=== PATIENT | male | born 1985 | race Caucasian/White ===

== ENCOUNTER → 2022-04-29 13:18 | Outpatient (CLI) | payer MEDICAID, SELFPAY ==
--- NOTE | 2022-04-29 | DI.RAD_ITS ---
Exam(s) XR KNEE RT 3V AP,LAT,FELICIA EXAM: XR KNEE RT 3V AP,LAT,FELICIA CLINICAL HISTORY: Chronic rt knee pain > 3 mos, M25.561, trauma years ago, mild laxity now. TECHNIQUE: 2D digital imaging was performed. Three views. COMPARISON: No exams were available for comparison FINDINGS: BONES: No acute fracture is present. There is a circumscribed elongated bony density seen adjacent t o the region of the tibial spines. This could be secondary to prior trauma. No bony destructive les ion is seen. JOINTS: The joint spaces are well maintained. The knee is normally aligned. No joint effusion is see n. SOFT TISSUE: Normal. IMPRESSION: Bony density near the tibial spines may be related to prior trauma. DATA REPOSITORY: RADIATION DOSE DELIVERED:
== END ==
PROVIDERS: Visit Provider Nurse Practitioner Family
DX: M25.561 Pain in right knee (principal); G89.29 Other chronic pain
CPT/HCPCS: 73562

== ENCOUNTER 2025-03-02 16:54 | Emergency (ER) | payer MEDICAID, SELFPAY ==
[2025-03-02 17:04] VITALS: BP 119/85; PULSE 68; RESP 19; TEMP 37.3; O2SAT 100
[2025-03-02] MEDS: Acetaminophen 500 MG TAB 1000 MG PO (17:36)
[2025-03-02] MEDS: diazePAM 10 MG/2 ML SYR 5 MG IVP (17:36)
[2025-03-02] MEDS: Ketorolac 15 MG/ML VIAL IVP (17:36)
[2025-03-02] MEDS: MORPHine 4 MG/ML SYR IVP (18:39)
[2025-03-02 19:20] VITALS: BP 114/75; PULSE 75; RESP 18; TEMP 37.2; O2SAT 95
[2025-03-02] MEDS: Bupivacaine 0.5% Pres-Free 30 ML VIAL IJ (19:21)
--- NOTE | 2025-03-02 22:04 | ED.GENADUL_ITS ---
Discharge Plan Disposition Patient Disposition: Home Condition: Stable Discharge Details Clinical Impression: Back pain Primary Care Provider: Unknown,Unknown ED Provider: Ana Hicks Home Meds and New Rx's Prescriptions: New diazepam [Valium] 5 mg tablet 5 mg PO BID PRNQty: 10 0RF Discharge Instructions Instructions: Managing acute pain at home, Low Back Pain ED Additional Instructions: take motrin 600 mg every 8 hours with food take tylenol 500 mg every 6 hours stretching cold or warm compresses, whatever feels better two hours after use Take Valium sparingly and this medication can be addictive, do not combine with alcohol or drive for 8 hours after taking this medication Recheck in 1 week with persistent pain HPI General Date/Time Provider Initiated Documentation: 03/02/25 17:03 . HPI Narrative: The patient is a healthy 39-year-old male presenting with acute back pain after lifting a log and turning quickly, causing a spasm. Pain persisted despite ibuprofen, rest, and chiropractor visit. No prior pain. He is alert, oriented, and in acute distress. Reproducible paraspinal and latissimus bursa tenderness. DTRs, strength, sensation, and distal pulses intact. No abdominal bruit, pulsatile mass, or CVA tenderness. No imaging needed. Received Valium, Toradol, Tylenol with marked symptom improvement. Muscle spasm likely in chest and dorsal muscle; injected 10 cm? bupivacaine into 4 latissimus dorsi sites, resulting in almost complete pain relief. Neurovascularly intact, requesting discharge. Prescribed Valium, advised rest, heat, cold compresses, Lidoderm patches after 2400 hours. No cauda equina syndrome. Return precautions reviewed. Follow-up with PCP in 4-5 days if symptoms persist. Back pain began this morning after lifting a log and turning quickly, causing a spasm. Pain persisted despite ibuprofen, rest, and chiropractor visit. No bowel/bladder changes, abnormal sensations, abdominal pain, or dysuria. No illicit drug use. Related Data Home Medications ?Medication ?Instructions ?Recorded ?Confirmed diazepam 5 mg tablet (Valium) 5 mg PO BID PRN #10 tabs 03/02/25 Previous Rx's ?Medication ?Instructions ?Recorded diazepam 5 mg tablet (Valium) 5 mg PO BID PRN #10 tabs 03/02/25 Allergies Allergy/AdvReac Type Severity Reaction Status Date / Time Unable to Assess Allergy Verified 03/02/25 17:03 General Stated Complaint: Nk/Back Pain SANDY: 3 Exam Narrative Exam Narrative: General Appearance: Alert, oriented, in acute distress. Vital signs: Within normal limits. HEENT: Within normal limits. Respiratory: Within normal limits. Cardiovascular: No abdominal bruit, pulsatile mass. Gastrointestinal: No abdominal bruit, pulsatile mass. Back, Musculoskeletal: Reproducible paraspinal and latissimus bursa tenderness. Extremities: Distal pulses intact. Skin: Warm and dry, no rash. Neurological: DTRs, strength, sensation intact. Course Initial Assessment: 39-year-old male with acute back pain after lifting a log of wood and turning quickly. Pain persisted despite ibuprofen, rest, and chiropractor visit. No changes in bowel or bladder function, no extremity shingles sensation, abdominal pain, or dysuria. No history of illicit drug use. Pain reproducible with paraspinal and latissimus bursa tenderness. Patient alert and oriented, in acute distress. ED Course: - Administered Valium, Toradol, and Tylenol. - Marked improvement in symptoms. Procedure: - Injected approximately 10 cm? of bupivacaine into four separate sites along the latissimus dorsi muscle. No complications during procedure - Almost complete alleviation of pain. - Remains neurovascularly intact. Final Assessment: Significant symptom improvement with Valium, Toradol, and Tylenol. Likely muscle spasms in chest and dorsal muscles. Injection of bupivacaine resulted in almost complete pain relief. No evidence of cauda equina syndrome. Clinical Impression: - Back pain Disposition: - Discharge home - Follow-Up: Recheck with primary care physician in 4-5 days if symptoms persist. Patient Education: Advised rest, heat, cold compresses, and application of Lidoderm patches after 24 hours. Return precautions reviewed. MDM Components Evaluation: - Number of Differential Diagnoses or Management Options: Back pain, muscle spasms, cauda equina syndrome. - Amount and Complexity of Data Reviewed: Physical examination findings. - Risk of Complication and Morbidity or Mortality: Low risk based on current assessment and treatment plan. Vital Signs Vital signs: Vital Signs Temperature 37.3 C 03/02/25 17:04 Pulse 68 03/02/25 17:04 Respiratory Rate 19 03/02/25 17:04 Blood Pressure 119/85 03/02/25 17:04 Pulse Oximetry 100 03/02/25 17:04 Temperature 37.2 C 03/02/25 19:20 Temperature Source Temporal Artery Scan 03/02/25 17:04 Pulse 75 03/02/25 19:20 Respiratory Rate 18 03/02/25 19:20 Blood Pressure 114/75 03/02/25 19:20 Blood Pressure Position Supine 03/02/25 17:04 Pulse Oximetry 95 03/02/25 19:20 Oxygen Delivery Method Room Air 03/02/25 17:04 Oxygen Flow Rate 0 03/02/25 17:04 Pain Level 7 03/02/25 18:39 Medical Decision Making Quality:SDOH Health Related Social Needs: No Data to Display PFSH All Active Problems (Updated 03/02/25 @ 18:57 by OSCAR Cooper) Back pain (Acute) No-show for appointment (Acute) Social History Smoking/Tobacco Use Status: Current every day Tobacco Type: cigarettes Years smoked: 15 Smoking risk assessment performed?: Yes Alcohol Intake: current Alcohol Intake frequency: a few times a week Alcohol type: beer Substance use type: does not use Housing: house Do you feel safe at home: Yes Do you feel safe in your relationship?: Yes PAWSS Have you Been Recently Intoxicated or Drunk Within the Last 30 days?: No Have you Ever Experienced Previous Episodes of Alcohol Withdrawal?: No Have you ever Experienced Withdrawal Seizures?: No Have you ever Experienced Delirium Tremens(DT)s?: No Have you ever undergone Alcohol Rehabilitation Treatment (i.e, inpt ot outpatient treatment programs)?: No Have you ever Experienced Blackouts?: No Have you ever Combined Alcohol with other Downers within the last 90 days?: No Have you ever Combined Alcohol with any other Substance of Abuse during the last 90 days?: No Positive Blood Alcohol level on Presentation? [PCS.BAL]: No Evidence of Increased Autonomic Activity (i.e. HR>120, tremor, sweating, agitation, nausea)?: No Result: 0
== END 2025-03-02 19:20 | disposition home or self-care (01) ==
LOC: ER 20:37
PROVIDERS: Emergency Provider Physician Assistant
DX: M54.50 Low back pain, unspecified (principal); F17.210 Nicotine dependence, cigarettes, uncomplicated
CPT/HCPCS: 20552; 96374; 96375; 99283; J0665; J1885; J2270; J3360

== ENCOUNTER 2025-09-18 19:22 | Emergency (ER) | payer MEDICAID, SELFPAY ==
[2025-09-18 19:34] VITALS: BP 126/77; PULSE 62; RESP 18; TEMP 36.8; O2SAT 98
--- NOTE | 2025-09-18 20:54 | DI.RAD_ITS ---
Exam(s) XR HUMERUS RT EXAM: XR HUMERUS RT CLINICAL HISTORY: radial nerve palsy, eval for trauma. TECHNIQUE: 2D digital imaging was performed. COMPARISON: No exams were available for comparison FINDINGS: 3 views No evidence of fracture of the humerus. No osseous lesions. No obvious degenerative change in the glenohumeral and elbow joints. No elbow joint effusion. No swelling of the olecranon bursa. Bone density is normal. There are no significant osseous lesions in the humerus. IMPRESSION: No acute osseous findings in the right humerus. DATA REPOSITORY: RADIATION DOSE DELIVERED:
--- NOTE | 2025-09-18 21:07 | ED.GENADUL_ITS ---
Discharge Plan Disposition Patient Disposition: Home Discharge Details Clinical Impression: Acute radial nerve palsy Primary Care Provider: Unknown,Unknown ED Provider: Ana Hicks Discharge Instructions Instructions: Radial Nerve Entrapment (DC) Additional Instructions: You likely have probable radial nerve palsy, this will most likely resolve on its but you will need follow-up to be sure Wear your wrist splint as frequently as you are able to support healing The orthopedist will call you for follow-up, if you do not hear from them in the next few days, please call I am also placing you on referral to establish with a PCP Referrals: Christian Byrd MD [ [facility] STAFF PHYSICIAN, Orthopaedic Surgical] Discharge Data Discharge Date/Time-TO BE ENTERED AT DEPARTURE: 09/18/25 21:41 HPI General Date/Time Provider Initiated Documentation: 09/18/25 19:58 . HPI Narrative: This 40-year-old male presents with right wrist weakness. Has been unable to extend his wrist for the past two days. Pt denies any known trauma or pain. He states he has diminished sensation to his forearm on the right and thumb/1st-2nd digitis. Denies hx of similar. hx of biceps tendon rupture a few years ago. He is building a house,but was at rest when he noticed the weakness. does drink alcohol daily,but denies falls or abnormal sleep positions. Patient denies any additional strength or sensation changes. He specifically denies speech, vision, headache, or lower extremity abnormalities or weakness. Related Data Allergies Allergy/AdvReac Type Severity Reaction Status Date / Time Unable to Assess Allergy Verified 09/18/25 19:36 General Stated Complaint: Orthopedic SANDY: 4 Exam Narrative Exam Narrative: Alert, oriented, no acute distress cranial nerves II through L intact pupils equal round reactive to light accommodation no strength or sensation change to lower extremities Extrem Elbow/forearm/wrist images: 2 1. diminished sensation Hand/finger images: 2 1. diminished sensation 2. Other: vascularly intact wrist held in flexion, unable to extend biceps tendon deformity noted non-tender, no visible signs Course Vital Signs Vital signs: Vital Signs Temperature 36.8 C 09/18/25 19:34 Pulse 62 09/18/25 19:34 Respiratory Rate 18 09/18/25 19:34 Blood Pressure 126/77 09/18/25 19:34 Pulse Oximetry 98 09/18/25 19:34 Temperature 36.8 C 09/18/25 19:34 Pulse 62 09/18/25 19:34 Respiratory Rate 18 09/18/25 19:34 Blood Pressure 126/77 09/18/25 19:34 Pulse Oximetry 98 09/18/25 19:34 Pain Level 4 09/18/25 19:34 Medical Decision Making Results: Humerus x-ray does not show evidence of acute fracture per radiology interpretation and my review Assessment and plan: Patient with likely radial nerve palsy based on assessment and lack of additional neurological findings. Case was discussed briefly with Dr. Byrd regarding management in the outpatient setting. Recommendation for wrist splint. He will also be placed on orthopedic follow-up to be sure he regain some function of his dominant hand. There is no evidence of secondary infection. The remainder of his neurological assessment is benign. Return precautions reviewed and patient expressed understanding PFSH All Active Problems (Updated 09/18/25 @ 21:09 by OSCAR Cooper) Acute radial nerve palsy (Acute) No-show for appointment (Acute) Social History Smoking/Tobacco Use Status: Current every day Tobacco Type: cigarettes Years smoked: 15 Smoking risk assessment performed?: Yes Alcohol Intake: current Alcohol Intake frequency: a few times a week Alcohol type: beer Substance use type: does not use Housing: house Do you feel safe at home: Yes Do you feel safe in your relationship?: Yes
[2025-09-18 21:37] VITALS: BP 112/71; PULSE 57; RESP 14; TEMP 37.1; O2SAT 98
== END 2025-09-18 21:41 | disposition home or self-care (01) ==
PROVIDERS: Emergency Provider Physician Assistant
DX: G56.31 Lesion of radial nerve, right upper limb (principal); F17.210 Nicotine dependence, cigarettes, uncomplicated
CPT/HCPCS: 99283; 73060